=== PATIENT | female | born 1950 | race Caucasian/White ===

== ENCOUNTER 2017-03-11 08:26 | Day surgery (SDC) | payer OTHER ==
[~2017-03-11 08:26] MED LIST: ALEN70; ALLO100 PO; AMLO5 PO; Budeprion Xl300 MG; CITA20 PO; Detrol LA2 MG; FLUO10; GABA300 PO; HYDACE5325 PO; HYDR1TAB94; LOSA50 PO; METF500 PO; NAPR550; Pravachol80 MG PO
[2017-04-02] MEDS ORDERED: GLIP5 PO (13:47)
[2017-04-02] MEDS ORDERED: DULO30 PO (13:49)
[2017-04-02] MEDS ORDERED: SOLI5 PO (13:49)
[2017-04-02] MEDS ORDERED: IBUP600 PO (13:50)
== END 2017-03-11 23:06 | disposition home or self-care (01) ==
LOC: MOI MAM 08:26
PROC: 0HBU3ZX Excision of Left Breast, Percutaneous Approach, Diagnostic (ICD-10-PCS; principal; 2017-03-11)
DX: C50.912 Malignant neoplasm of unspecified site of left female breast (principal)
CPT/HCPCS: 19083; 77065; 88305; 88342; A4648; G0279

== ENCOUNTER 2017-04-03 08:47 | Day surgery (SDC) | payer OTHER ==
[~2017-04-03 08:47] MED LIST changes: +DULO30 PO; +GLIP5 PO; +IBUP600 PO; +SOLI5 PO
== END 2017-04-03 22:55 | disposition home or self-care (01) ==
LOC: MOI MAM 08:47 → MOI US 09:30 → MOI MAM 22:55
PROC: BH3 Imaging, Skin, Subcutaneous Tissue and Breast, Magnetic Resonance Imaging (MRI) (ICD-10-PCS; principal; 2017-04-03)
DX: N63.23 Unspecified lump in the left breast, lower outer quadrant (principal)
CPT/HCPCS: 19281

== ENCOUNTER 2017-04-05 07:04 | Day surgery (SDC) | payer OTHER ==
[~2017-04-05] VITALS: Ht 149.9 cm; Wt 75.3 kg
== END 2017-04-05 13:13 | disposition home or self-care (01) ==
LOC: RAD 07:04 → ORSCMMR 07:04 → RAD 08:00 → ORD 09:15 → RAD 13:13
PROVIDERS: Surgery
PROC: 0HBU0ZX Excision of Left Breast, Open Approach, Diagnostic (ICD-10-PCS; principal; 2017-04-05 09:15)
DX: D24.2 Benign neoplasm of left breast (principal); I10 Essential (primary) hypertension; E11.9 Type 2 diabetes mellitus without complications; E66.9 Obesity, unspecified; Z68.33 Body mass index [BMI] 33.0-33.9, adult; Z79.899 Other long term (current) drug therapy; Z87.891 Personal history of nicotine dependence
CPT/HCPCS: 82947; 88307; 88342; J0690; J2250; J7120

== ENCOUNTER → 2018-07-22 | Outpatient (CLI) | payer OTHER | END | disposition home or self-care (01) | LOC: LAB SHORT 11:00 → LAB 11:00 | DX: N89.8 Other specified noninflammatory disorders of vagina (principal) | CPT/HCPCS: 87070; 87205 ==

== ENCOUNTER 2021-12-13 08:26 | Day surgery (SDC) | payer OTHER ==
[~2021-12-13] VITALS: Ht 144.8 cm; Wt 59.9 kg
[~2021-12-13 08:26] MED LIST changes: +OMEP20ER PO; +OTEZLA1 EAC2; +RYBELSUS3 MG PO; +SITA25T2
--- NOTE | 2021-12-13 13:54 | NUR ---
12/13/21 1354 Aury Garland 1G PETERSON STARTED IN PREOP AT 1220
--- NOTE | 2021-12-13 19:06 | NUR ---
SHIFT SUMMARY PT DID NOT WORK w/ THERAPY BEING THE LAST POST OP OF THE DAY & ARRIVING TO UNIT AROUND 1640. HAS BEEN UP IN ROOM, TO BATHROOM, & UP IN CHAIR. PT IS IMPULSIVE, FIDGETY, EASILY DISTRACTED, WASN'T FOLLOWING DIRECTION DURING 1st AMBULATION, BUT BETTER w/ 2nd & 3rd AMBULATION. BED/CHAIR ALARM.
[2021-12-14 04:57] LABS: BASOPHILS ABSOLUTE AUTO 0.01 K/mm3 (0.00-0.23); BASOPHILS PERCENT AUTO 0 % (0-2); EOSINOPHILS PERCENT AUTO 0 % (0-6); Hematocrit 28.4 % (33.0-51.0); Hemoglobin 9.4 g/dL (11.5-16.0); IMMATURE GRAN ABSOLUTE AUTO 0.06 K/mm3 (0.00-0.10); IMMATURE GRAN PERCENT AUTO 0 % (0-1); LYMPHOCYTES ABSOLUTE AUTO 1.42 K/mm3 (0.84-5.20); LYMPHOCYTES PERCENT AUTO 10 % (21-46); MONOCYTES PERCENT AUTO 6 % (4-13); Mean Corpuscular HGB 28.7 pg (26.0-34.0); Mean Corpuscular HGB Conc 33.1 g/dL (31.5-36.5); Mean Corpuscular Volume 87 fL (80-100); Mean Platelet Volume 10.1 fL (9.1-12.4); NEUTROPHILS ABSOLUTE AUTO 11.62 K/mm3 (1.96-9.15); NEUTROPHILS PERCENT AUTO 84 % (41-73); Platelet Count 247 K/mm3 (150-400); RDW Coefficient Variation 13.3 % (11.7-14.2); RDW Standard Deviation 42.8 fL (35.1-46.3); Red Blood Cell Count 3.27 M/mm3 (3.80-5.20); White Blood Cell Count 13.91 K/mm3 (4.00-11.30)
[2021-12-14 05:12] LABS: Bun/Creatinine Ratio 23.1 (12.0-20.0); Calcium, Blood 9.2 mg/dL (8.5-10.1); Creatinine, Blood 1.04 mg/dL (0.40-1.00); Magnesium, Blood 2.1 mg/dL (1.6-2.4); Potassium, Blood 4.2 mmol/L (3.5-5.5)
--- NOTE | 2021-12-14 06:59 | NUR ---
TROMPER SUMMARY PT DOING WELL POST OP. AMBULATING WITH FWW AND STANDBY ASSIST. MEDICATED FOR PAIN X1 TONIGHT ASIDE FORM SCHEDULED TORADOL. PT HAS VOIDED AND IS TAKING PO FLUIDS WITH NO ISSUE. VSS, WILL CONTINUE TO MONITOR.
[2021-12-14] MEDS ORDERED: OXYC5 PO (09:13)
[2021-12-14] MEDS ORDERED: ASPI81CH PO (09:13)
[2021-12-14] MEDS ORDERED: PROM25 PO (09:14)
[2021-12-14] MEDS ORDERED: SULTRIDS PO (09:14)
--- NOTE | 2021-12-14 11:10 | NUR ---
DISCHARGE SUMMARY POD1 L TKA, A/O X4, VSS, TOLERATING PO, VOIDING WELL, AMBULATING WITH MINIMAL ASSISTANCE, POLAR PACK IN PLACE WHILE SITTING/LYING DOWN, REPORTS NO PAIN AT TIME OF ASSESSMENT AND STILL AFTER WORKING WITH PHYSICAL THERAPY. NEW DRESSING PLACED BY SURGEON, ADDITIONAL DRESSINGS PROVIDED TO PT AT DISCHARGE. IV ACCESS REMOVED. PT EDUCATED ON HOME CARE, DRESSING CHANGES AND SITE CARE, FOLLOW UP APPOINTMENTS, AND MEDICATIONS. CONTACT INFORMATION GIVEN SHOULD QUESTIONS COME UP AFTER DC. PT ESCORTED OUT TO PRIVATE AUTO VIA WC TO GO HOME.
== END 2021-12-14 10:15 | disposition home or self-care (01) ==
LOC: ORSCMMR 08:26 → SURS 16:11 → ORSCMMR 12-14 10:15
PROVIDERS: Orthopaedic Surgery
PROC: 0SRD0J9 Replacement of Left Knee Joint with Synthetic Substitute, Cemented, Open Approach (ICD-10-PCS; principal; 2021-12-13 14:15)
DX: M17.12 Unilateral primary osteoarthritis, left knee (principal); E11.9 Type 2 diabetes mellitus without complications; I10 Essential (primary) hypertension; F32.A Depression, unspecified; K76.0 Fatty (change of) liver, not elsewhere classified; K21.9 Gastro-esophageal reflux disease without esophagitis; Z79.84 Long term (current) use of oral hypoglycemic drugs; Z79.899 Other long term (current) drug therapy; Z87.891 Personal history of nicotine dependence
CPT/HCPCS: 36415; 73560-LT; 80048; 82947; 83735; 85025; 97110; 97116; 97161; 97530; A9270; C1713; C1776; J0171; J0690; J0735; J1100; J1815; J1885; J2250; J2370; J2405; J2704; J2795; J3010; J3370; J7120

== ENCOUNTER 2022-09-27 09:09 | Day surgery (SDC) | payer OTHER ==
[~2022-09-27] VITALS: Ht 152.4 cm; Wt 63.9 kg
[~2022-09-27 09:09] MED LIST changes: +ASPI81CH PO; +Crestor20 MG PO; +FERSU300 PO; +GLUCOPHAGE1000 M1 PO; +LOSARTAN-HCTZ1 EAC6 PO; +OXYC5 PO; +PRAM.125 PO; +PROM25 PO; +SITA100T2 PO; +SULTRIDS PO; +Vesicare10 MG PO
[2022-09-27] MEDS ORDERED: ERGO400 (10:27)
[2022-09-27] MEDS ORDERED: TREMFYA100 MG/1 M (10:28)
[2022-09-27] MEDS ORDERED: IBUP800 PO (10:28)
[2022-09-27] MEDS ORDERED: NORT10 PO (10:28)
[2022-09-27 12:55] VITALS: BP 103/76
== END 2022-09-27 12:45 | disposition home or self-care (01) ==
LOC: ORSCSDS 09:09
PROVIDERS: Specialist
PROC: 0DB98ZX Excision of Duodenum, Via Natural or Artificial Opening Endoscopic, Diagnostic (ICD-10-PCS; principal; 2022-09-27 11:00)
PROC: 0DB78ZX Excision of Stomach, Pylorus, Via Natural or Artificial Opening Endoscopic, Diagnostic (ICD-10-PCS; principal; 2022-09-27 11:00)
PROC: 0DBK8ZX Excision of Ascending Colon, Via Natural or Artificial Opening Endoscopic, Diagnostic (ICD-10-PCS; principal; 2022-09-27 11:00)
DX: D50.9 Iron deficiency anemia, unspecified (principal); D12.2 Benign neoplasm of ascending colon; K44.9 Diaphragmatic hernia without obstruction or gangrene; K64.8 Other hemorrhoids; K29.70 Gastritis, unspecified, without bleeding; K57.30 Diverticulosis of large intestine without perforation or abscess without bleeding; I10 Essential (primary) hypertension; E11.9 Type 2 diabetes mellitus without complications; Z79.899 Other long term (current) drug therapy
CPT/HCPCS: 82947; 88305; 88341; 88342; J2704; J7120

== ENCOUNTER 2023-11-20 06:39 | Day surgery (SDC) | payer OTHER ==
[~2023-11-20] VITALS: Ht 147.3 cm; Wt 61.1 kg
[~2023-11-20 06:39] MED LIST changes: +ERGO400; +IBUP800 PO; +NORT10 PO; +TREMFYA100 MG/1 M
[2023-11-20] MEDS ORDERED: GLIP5 (07:14)
[2023-11-20] MEDS ORDERED: RYBELSUS14 MG (07:15)
[2023-11-20] MEDS ORDERED: METTREX2.5 (07:17)
[2023-11-20] MEDS ORDERED: FOLI1 (07:18)
[2023-11-20] MEDS ORDERED: Crestor40 MG (07:18)
[2023-11-20] MEDS ORDERED: Lactated Ringer's 1,000 ML IV ONE ×2 (07:31→07:51)
[2023-11-20] MEDS ORDERED: propofoL 50 ML IV ONE (07:31)
[2023-11-20] MEDS ORDERED: Lidocaine 2% 5 ML SDV ONE (07:43)
[2023-11-20 08:57] VITALS: BP 99/57
== END 2023-11-20 08:59 | disposition home or self-care (01) ==
LOC: ORSCSDS 06:39
PROVIDERS: Specialist
PROC: 0DB68ZX Excision of Stomach, Via Natural or Artificial Opening Endoscopic, Diagnostic (ICD-10-PCS; principal; 2023-11-20 08:00)
DX: R13.10 Dysphagia, unspecified (principal); R19.4 Change in bowel habit; K29.70 Gastritis, unspecified, without bleeding; K20.90 Esophagitis, unspecified without bleeding; K44.9 Diaphragmatic hernia without obstruction or gangrene
CPT/HCPCS: 82947; 88305; 88342; J2704; J7120

== ENCOUNTER 2024-05-15 19:39 | Emergency (ER) | payer OTHER ==
[~2024-05-15] VITALS: Ht 152.4 cm; Wt 67.6 kg
[~2024-05-15 19:39] MED LIST changes: +Crestor40 MG; +FOLI1; +GLIP5; +METTREX2.5; +RYBELSUS14 MG
[2024-05-15] MEDS ORDERED: Acetaminophen 500 MG Tab PO ONE (23:10)
[2024-05-15] MEDS ORDERED: Ibuprofen 400 MG Tab PO ONE (23:10)
[2024-05-15 23:21] VITALS: BP 157/78
== END 2024-05-15 23:21 | disposition other institution (70) ==
LOC: ER 19:39
DX: S50.12XA Contusion of left forearm, initial encounter (principal); S20.20XA Contusion of thorax, unspecified, initial encounter; I10 Essential (primary) hypertension; Z79.899 Other long term (current) drug therapy; W01.0XXA Fall on same level from slipping, tripping and stumbling without subsequent striking against object, initial encounter; Z88.8 Allergy status to other drugs, medicaments and biological substances; Z79.84 Long term (current) use of oral hypoglycemic drugs; Z79.1 Long term (current) use of non-steroidal anti-inflammatories (NSAID); Z87.891 Personal history of nicotine dependence
CPT/HCPCS: 70450; 71046; 73090; A9270